=== PATIENT | female | born 1980 | race African-American/Black ===

== ENCOUNTER 2016-11-20 15:03 | Emergency (ER) | payer MEDICAID, OTHER ==
[~2016-11-20] VITALS: Ht 170.2 cm; Wt 70.0 kg
[~2016-11-20 15:03] MED LIST: FLUO-1 PO; VITA20002 PO; Z.0.BCPILL PO
[2016-11-20 15:27] VITALS: BP 129/87; PULSE 103; RESP 19; TEMP 99; O2SAT 99
--- NOTE | 2016-11-20 16:48 | PD ---
HPI Chief Complaint: Respiratory Symptoms Time Seen by Provider: 16:48 Travel History International Travel<30 days: No Contact w/Intl Traveler<30days: No Traveled to known affect area: No History of Present Illness HPI 36-year-old female with a history of hypertension and recurrent bronchitis presents to the emergency department for evaluation of cough for 2 weeks and chest pressure. The patient states that she's had a productive cough for 2 weeks and today while she was driving she began to have chest pressure. States that she had to car clerk pullman and call EMS who transported her to the emergency department. States that she does have subjective fever and chills. States that she was seen by her PCP yesterday and started on clarithromycin. Denies difficulty breathing, shortness of breath, lightheadedness, dizziness, nausea, vomiting, abdominal pain. Denies . Denies smoking history. Denies any history of heart disease or [place]. No recent travel or sick contacts. No other complaints. PFSH Past Medical History Asthma: Yes Depression: Yes Diminished Hearing: No Pancreatitis: Yes : 2 Para: 2 Past Surgical History Ear Surgery: Yes (left ear x 2) Social History Alcohol Use: Yes (occas. wine) Tobacco Use: No Substance Use: No Allergies-Medications (Allergen,Severity, Reaction): Coded Allergies: Doxycycline (Verified Allergy, Severe, VOMIT, 11/20/16) Levaquin (Verified Allergy, Severe, Anaphylaxis, 11/20/16) Zofran (Verified Allergy, Severe, DIFFICULTY BREATHING, 11/20/16) Bactrim (Unverified Allergy, Mild, 11/20/16) Hctz (Unverified Allergy, Mild, 11/20/16) Prozac (Unverified Allergy, Mild, 11/20/16) Reported Meds & Prescriptions Reported Meds & Active Scripts Active Review of Systems Except as stated in HPI: all other systems reviewed are Neg Physical Exam Narrative GENERAL: Well-nourished and well-developed female patient in no acute distress who is nontoxic appearing. SKIN: Warm and dry. HEAD: Normocephalic and atraumatic. EYES: No injection, drainage, or hyphema noted. PERRLA. EOMI. ENT: No nasal drainage noted. Oropharynx is clear. NECK: Supple and the trachea is midline. CARDIOVASCULAR: Regular rate and rhythm. RESPIRATORY: Breath sounds are equal bilaterally with no accessory muscle use, wheezing, rhonchi, or crackles. GASTROINTESTINAL: Abdomen is soft, non-tender, and nondistended. MUSCULOSKELETAL: No obvious deformities, swelling, cyanosis, or ecchymosis is present throughout the upper and lower extremities. Patient has full range of motion without any signs of neurovascular compromise. NEUROLOGICAL: Awake, alert, and oriented. Normal speech and gait. Cranial nerves are grossly intact. Data Data Last Documented VS Vital Signs Date Time Temp Pulse Resp B/P Pulse Ox O2 Delivery O2 Flow Rate FiO2 11/20/16 17:21 97 Room Air 11/20/16 17:21 83 18 127/77 11/20/16 15:27 99.0 Orders Complete Blood Count With Diff (11/20/16 16:46) Basic Metabolic Panel (Bmp) (11/20/16 16:46) Troponin I (11/20/16 16:46) Influenzae A/B Antigen (11/20/16 16:46) Iv Access Insert/Monitor (11/20/16 16:46) Electrocardiogram (11/20/16 16:46) Ecg Monitoring (11/20/16 16:46) Oximetry (11/20/16 16:46) Chest, Pa & Lat (11/20/16 16:46) Ed Urine Pregnancytest Poc (11/20/16 16:46) Azithromycin Inj (Zithromax Inj) (11/20/16 17:30) Sodium Chlor 0.9% 1000 Ml Inj (Ns 1000 M (11/20/16 18:37) Labs Laboratory Tests Test 11/20/16 17:15 White Blood Count 12.2 TH/MM3 Red Blood Count 4.93 MIL/MM3 Hemoglobin 13.7 GM/DL Hematocrit 42.5 % Mean Corpuscular Volume 86.2 FL Mean Corpuscular Hemoglobin 27.7 PG Mean Corpuscular Hemoglobin 32.2 % Concent Red Cell Distribution Width 14.6 % Platelet Count 417 TH/MM3 Mean Platelet Volume 8.0 FL Neutrophils (%) (Auto) 58.0 % Lymphocytes (%) (Auto) 30.1 % Monocytes (%) (Auto) 10.9 % Eosinophils (%) (Auto) 0.9 % Basophils (%) (Auto) 0.1 % Neutrophils # (Auto) 7.0 TH/MM3 Lymphocytes # (Auto) 3.7 TH/MM3 Monocytes # (Auto) 1.3 TH/MM3 Eosinophils # (Auto) 0.1 TH/MM3 Basophils # (Auto) 0.0 TH/MM3 CBC Comment DIFF FINAL Differential Comment Sodium Level 142 MEQ/L Potassium Level 3.5 MEQ/L Chloride Level 105 MEQ/L Carbon Dioxide Level 28.3 MEQ/L Anion Gap 9 MEQ/L Blood Urea Nitrogen 19 MG/DL Creatinine 1.01 MG/DL Estimat Glomerular Filtration 76 ML/MIN Rate Random Glucose 73 MG/DL Calcium Level 8.6 MG/DL Troponin I LESS THAN 0.02 NG/ML MDM Medical Decision Making Medical Screen Exam Complete: Yes Emergency Medical Condition: Yes Differential Diagnosis Pneumonia versus bronchitis versus influenza versus pleurisy Narrative Course 36-year-old female presents to the emergency department for evaluation of cough and chest pressure. Patient has a temperature of 99.0F. She slightly tachycardic with a heart rate of 103 bpm. Otherwise vital signs are within normal limits. Physical examination is unremarkable. Lungs are clear to auscultation. Chest x-ray has been ordered and is pending. IV access is obtained, labs were drawn and sent. Patient is placed on cardiac telemetry and pulse oximetry monitoring. EKG shows sinus rhythm with no acute ST elevations or depressions. Chest x-ray shows right middle lobe pneumonia. CBC shows slightly elevated white blood cell count of 12.2. Otherwise unremarkable. BMP shows mild dehydration with a creatinine of 1.01, BUN 19, GFR 76. Patient is given a liter of fluid. Troponin is less than 0.02. Influenza swab is negative. Patient is administered Zithromax 500 mg IV. She has remained stable and without complaint while here in the emergency department. I discussed the case with my attending physician Dr. Rodriguez. Since the patient has been on clarithromycin only since yesterday. It appropriate to change her to Zithromax and treat her as an outpatient. I discussed with the patient that should she develop any worsening of symptoms such as fever, worsening cough or difficulty breathing she should return immediately to the emergency department. Patient verbalizes understanding and agreement with treatment plan. I discussed the case with my attending physician Dr. Rodriguez who is aware of the patients history, physical examination findings, and treatment plan. Diagnosis Primary Impression: Pneumonia Qualified Code: J18.1 - Pneumonia of right middle lobe due to infectious organism Referrals: Primary Care Physician Patient Instructions: Community Acquired Pneumonia (ED), General Instructions Additional Instructions: Rest. Use nebulizers every 6 hours. Stop taking the Clarithromycin. Begin taking Azithromycin. Take medications as prescribed with food and a full glass of water. Follow-up with your Primary Care Physician. Return to the ED for any acute worsening of symptoms. Med/Other Pt SpecificInfo: Prescription(s) given Scripts Benzonatate (Tessalon Perles)100 Mg [id number] Mg PO TID PRN (COUGH) 7 Days Ref 0 Prov:Cindi Rodriguez DO 11/20/16 Prednisone 20 Mg Tab20 Mg PO BID 5 Days Ref 0 Prov:Cindi Rodriguez DO 11/20/16 Azithromycin (Zithromax Z-Eulalio)250 Mg [id number] Mg PO DIRECTED #1 DSPK Ref 0 500 MG (2 tabs) day 1, then 1 tab days 2-5. Prov:Cindi Rodriguez DO 11/20/16 Disposition: 01 DISCHARGE HOME Condition: Stable Mirtha Soto Nov 20, 2016 16:48
--- NOTE | 2016-11-20 17:02 | RADRPT ---
EXAM DATE/TIME: 11/20/2016 16:55 [facility] COMPARISON: No previous studies available for comparison. INDICATIONS : Cough, chest pain, and shortness of breath. MEDICAL HISTORY : None. SURGICAL HISTORY : None. ENCOUNTER: Initial ACUITY: 1 day PAIN SCORE: 6/10 LOCATION: chest FINDINGS: PA and lateral views the chest were obtained and demonstrate patchy infiltrate in the right middle lo be. The left lung is clear. There is no effusion. The heart and mediastinal structures within normal limits. The bony thorax is intact. CONCLUSION: Right middle lobe pneumonia. Mario Alberto Tovar MD on November 20, 2016 at 16:58 Board Certified Radiologist. This report was verified electronically.
[2016-11-20 17:21] VITALS: BP 127/77; PULSE 83; PULSE 87; RESP 18; O2SAT 97
[2016-11-20] MEDS ORDERED: AZITHROMYCIN INJ 500 MG in SODIUM CHLOR 0.9% 250 ML INJ 250 ML IV ONE (17:30)
[2016-11-20 17:52] LABS: BASOPHIL % 0.1 % (0.0-2.0); EOSINOPHIL # 0.1 TH/MM3 (0-0.4); EOSINOPHIL % 0.9 % (0.0-4.0); HEMATOCRIT 42.5 % (35.0-46.0); HEMO FLAGS DIFF FINAL; LYMPH % 30.1 % (9.0-44.0); LYMPHOCYTE # 3.7 TH/MM3 (1.0-4.8); MEAN CELL VOLUME 86.2 FL (80.0-100.0); MEAN CORPUSCULAR HEMOGLOBIN 27.7 PG (27.0-34.0); MEAN CORPUSCULAR HGB CONC 32.2 % (32.0-36.0); MONO % 10.9 % (0.0-8.0); PLATELET COUNT 417 TH/MM3 (150-450); RED BLOOD COUNT 4.93 MIL/MM3 (4.00-5.30); RED CELL DISTRIBUTION WIDTH 14.6 % (11.6-17.2); WHITE BLOOD COUNT 12.2 TH/MM3 (4.0-11.0)
[2016-11-20 18:23] LABS: ANION GAP 9 MEQ/L (5-15); BICARBONATE 28.3 MEQ/L (21.0-32.0); BLOOD UREA NITROGEN 19 MG/DL (7-18); CHLORIDE 105 MEQ/L (98-107); GLOMERULAR FILTRATION RATE 76 ML/MIN (>89); POTASSIUM 3.5 MEQ/L (3.5-5.1); SODIUM (NA) 142 MEQ/L (136-145)
[2016-11-20] MEDS ORDERED: SODIUM CHLOR 0.9% 1000 ML INJ 1,000 ML IV SCH (18:37)
[2016-11-20] MEDS ORDERED: ZITHTAB PO (19:09)
[2016-11-20] MEDS ORDERED: PRED20 PO (19:09)
[2016-11-20] MEDS ORDERED: BENZ100 PO (19:09)
[2016-11-20 19:38] VITALS: BP 133/80; PULSE 70; RESP 16; O2SAT 97
--- NOTE | 2016-11-21 19:20 | EKG ---
Date Performed: 11/20/2016 Time Performed: 18:05:07 PTAGE: 36 years EKG: Sinus rhythm VOLTAGE CRITERIA FOR LVH ABNORMAL ECG NO PREVIOUS TRACING DOCTOR: Ozzy Dumas Interpretating Date/Time 11/21/2016 19:18:43
== END 2016-11-20 20:00 | disposition home or self-care (01) ==
LOC: NEPD 15:03
DX: J18.1 Lobar pneumonia, unspecified organism (principal); R07.89 Other chest pain; R94.31 Abnormal electrocardiogram [ECG] [EKG]; I10 Essential (primary) hypertension; Z87.09 Personal history of other diseases of the respiratory system; Z86.59 Personal history of other mental and behavioral disorders; Z87.19 Personal history of other diseases of the digestive system
CPT/HCPCS: 71020; 80048; 84484; 84703; 85025; 87804; 93005; 96361; 96365; 99284; J0456; J7030; J7050

== ENCOUNTER 2016-12-07 20:48 | Emergency (ER) | payer OTHER ==
[~2016-12-07] VITALS: Ht 162.6 cm; Wt 88.0 kg
[~2016-12-07 20:48] MED LIST changes: +BENZ100 PO; -FLUO-1 PO; +PRED20 PO; -VITA20002 PO; -Z.0.BCPILL PO; +ZITHTAB PO
[2016-12-07 21:00] VITALS: BP 149/101; PULSE 86; RESP 18; TEMP 98.5; O2SAT 100
[2016-12-07] MEDS ORDERED: POTA8CAP PO (21:16)
[2016-12-07] MEDS ORDERED: MONT4CHW2 CHEW (21:16)
[2016-12-07] MEDS ORDERED: ZYRT10CA PO (21:16)
[2016-12-07] MEDS ORDERED: JOLETAB PO (21:16)
[2016-12-07] MEDS ORDERED: MULT1TAB84 PO (21:16)
[2016-12-07] MEDS ORDERED: DULE100A INH (21:16)
[2016-12-07] MEDS ORDERED: ALBU0.63 NEB (21:16)
[2016-12-07] MEDS ORDERED: DILT0.05 PO (21:17)
[2016-12-07] MEDS ORDERED: CIPR0.3S EACH EAR (22:09)
[2016-12-07] MEDS ORDERED: AUGM875T PO (22:09)
--- NOTE | 2016-12-07 22:10 | PD ---
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 Patient presents today with some bleeding from the left ear. Patient states that approximately a week ago she attempted to remove her own tympanostomy tube because she didn't want to return to [place] the have it done and she's also had to have other surgery scheduled. She states "I know I did something stupid". Apparently she tried to put a small needle into her ear and she was able to successfully remove her own tympanostomy tube. She states that she has very decreased hearing at baseline. She has not followed up with her mobile nurse at this time. She denies any fever denies any nausea vomiting diarrhea constipation or upper respiratory symptoms. PFSH Past Medical History Asthma: Yes Depression: Yes Diminished Hearing: No Gastrointestinal Disorders: Yes (Hernia ) Hypertension: Yes Pancreatitis: Yes Tetanus Vaccination: > 5 Years Influenza Vaccination: Yes ?: Not LMP: Ended 11/21/16 : 2 Para: 2 Tubal Ligation: Yes Past Surgical History Ear Surgery: Yes (Left X's 2) Gynecologic Surgery: Yes (Uterine ablation ) Social History Alcohol Use: Yes (Occ.) Tobacco Use: No Substance Use: No Allergies-Medications (Allergen,Severity, Reaction): Coded Allergies: Doxycycline (Verified Allergy, Severe, VOMIT, 12/07/16) Levaquin (Verified Allergy, Severe, Anaphylaxis, 12/07/16) Symbicort (Verified Allergy, Severe, Anaphylaxis, 12/07/16) Zofran (Verified Allergy, Severe, DIFFICULTY BREATHING, 12/07/16) Bactrim (Unverified Allergy, Mild, 12/07/16) Hctz (Unverified Allergy, Mild, 12/07/16) Prozac (Unverified Allergy, Mild, 12/07/16) Reported Meds & Prescriptions Reported Meds & Active Scripts Active Augmentin (Amoxicillin-Clavulanate) 875-125 mg Tab 875 Mg PO BID 7 Days not for use in CrCl <30 ml/min. Ciprodex Otic Drops (Ciprofloxacin-Dexamethasone Otic Drops) 0.3-0.1% Susp 4 Drop EACH EAR BID Reported Diltiazem ER 24 HR 180 Mg Evelio 180 Mg PO DAILY Jolessa (Levonorgestrel-Ethinyl Estradiol) 0.15-0.03 Mg Tab 1 Tab PO DAILY Multivitamin Adults (Multiple Vitamins W/ Minerals) 1 Tab 1 Tab PO DAILY Potassium Chloride ER (Potassium Chloride) 8 Meq Cap 8 Meq PO DAILY Albuterol Neb (Albuterol Sulfate) 0.63 Mg/3 Ml Neb 0.63 Mg NEB TID NEB Dulera 120 Act Inh (Mometasone-Formoterol 120 Act Inh) 100-5 Mcg/Act Inh 2 Puff INH DAILY Zyrtec Allergy (Cetirizine HCl) 10 Mg Cap 10 Mg PO DAILY Singulair (Montelukast Sodium) 4 Mg Chew 4 Mg CHEW DAILY Review of Systems Except as stated in HPI: all other systems reviewed are Neg Physical Exam Narrative GENERAL: Well-developed well-nourished no apparent distress] SKIN: Focused skin assessment warm/dry. HEAD: Atraumatic. Normocephalic. EYES: Pupils equal and round. No scleral icterus. No injection or drainage. ENT: No nasal bleeding or discharge. Mucous membranes pink and moist. Right TM is normal, right ear canal is normal, the left TM is with what appears to be a serous effusion, there is some erythema of the ear canal and a small scab that is formed on the 12 o'clock position of the left ear canal. Left ear canal is very tortuous and deviates inferiorly. Patient states that she has had her cholesteatoma removed however this may be scar tissue which causes her canal to deviate inferiorly. The TM on the left does appear to be intact however the superior most portion is limited to visual exam NECK: Trachea midline. No JVD. CARDIOVASCULAR: Regular rate and rhythm. No murmur appreciated. RESPIRATORY: No accessory muscle use. Clear to auscultation. Breath sounds equal bilaterally. GASTROINTESTINAL: Abdomen soft, non-tender, nondistended. Hepatic and splenic margins not palpable. MUSCULOSKELETAL: No obvious deformities. No clubbing. No cyanosis. No edema. NEUROLOGICAL: Awake and alert. No obvious cranial nerve deficits. Motor grossly within normal limits. Normal speech. PSYCHIATRIC: Appropriate mood and affect; insight and judgment normal. Data Data Last Documented VS Vital Signs Date Time Temp Pulse Resp B/P Pulse Ox O2 Delivery O2 Flow Rate FiO2 12/07/16 21:00 98.5 86 18 149/101 100 MDM Medical Decision Making Medical Screen Exam Complete: Yes Emergency Medical Condition: Yes Differential Diagnosis Otitis externa, otitis media, bleeding from left ear canal Narrative Course Patient was roomed emergency department, she appears well in no apparent distress, there is no active bleeding from her left ear. Somewhat difficult to determine what her baseline anatomy is but there does appear to be very tortuous canal on the left unlikely this is related to her cholesteatoma. There is no indication further workup at this time. She will be covered for an otitis media and otitis externa and I instructed her to follow up with her mobile nurse by phone in the morning. Diagnosis Primary Impression: Bleeding from ear Qualified Code: H92.22 - Bleeding from ear, left Additional Impressions: Otitis externa Otitis media Additional Instructions: Follow-up with your mobile nurse by phone in the morning for further instructions. Avoid sex his antibiotic may make your hormonal contraception wound is effective. Med/Other Pt SpecificInfo: Prescription(s) given Scripts Amoxicillin-Clavulanate (Augmentin)875-125 mg [id number] Mg PO BID 7 Days Ref 0 not for use in CrCl <30 ml/min. Prov:Nolberto Butler MD 12/07/16 Ciprofloxacin-Dexamethasone Otic Drops (Ciprodex Otic Drops)0.3-0.1% Susp4 Drop EACH EAR BID #1 BOTTLE Ref 0 Prov:Nolberto Butler MD 12/07/16 Disposition: 01 DISCHARGE HOME Condition: Stable Nolberto Butler MD December 07, 2016 22:10
== END 2016-12-07 22:20 | disposition home or self-care (01) ==
LOC: PHEFT 20:48
DX: H92.22 Otorrhagia, left ear (principal); H60.92 Unspecified otitis externa, left ear; H66.92 Otitis media, unspecified, left ear; I10 Essential (primary) hypertension; Z98.890 Other specified postprocedural states; Z87.09 Personal history of other diseases of the respiratory system; Z86.59 Personal history of other mental and behavioral disorders; Z87.19 Personal history of other diseases of the digestive system
CPT/HCPCS: 99282